=== PATIENT | female | born 1990 | race Caucasian/White ===

== ENCOUNTER 2016-06-06 14:49 | Emergency (ER) | payer OTHER ==
[~2016-06-06] VITALS: Ht 167.6 cm; Wt 60.8 kg
[2016-06-06] MEDS ORDERED: SERO50TA PO (15:19)
[2016-06-06] MEDS ORDERED: VIST25CA PO (15:21)
[2016-06-06] MEDS ORDERED: YAZ3TAB PO (15:35)
[2016-06-06 17:03] VITALS: BP 118/74
== END 2016-06-06 17:05 | disposition home or self-care (01) ==
LOC: M ED 15:43
DX: F43.9 Reaction to severe stress, unspecified (principal); F32.9 Major depressive disorder, single episode, unspecified

== ENCOUNTER 2016-10-29 16:23 | Emergency (ER) | payer OTHER ==
[~2016-10-29] VITALS: Ht 167.6 cm; Wt 63.6 kg
[~2016-10-29 16:23] MED LIST: ATIV1TAB7; NAPR500T PO; SERO50TA PO; VIST25CA PO; YAZ1TAB PO
--- NOTE | 2016-10-29 18:21 | REP ---
Clinical: Right lower quadrant pelvic pain. Technique: Transabdominal pelvic ultrasound with color Doppler evaluation of the ovaries. Findings: Heterogeneous anteverted uterus measures 9.6 x 5.0 x 5.7 cm with a left anterior intramural fibroid measuring 1.1 cm diameter. The endometrial complex measures 11.9 mm thickness. No discrete endometrial abnormalities appreciated. Prominent pelvic vasculature is noted which is nonspecific. The bilateral ovaries are normal in appearance and vascularity without evidence for torsion. Right ovary measures 4.2 x 2.7 x 2.2 cm and includes 2.7 x 3.0 x 1.9 cm dominant follicle; RI = 0.59. Left ovary measures 2.9 x 2.3 x 1.0 cm; RI = 0.53. Trace free fluid in the right tommy pelvis noted. Impression: 1. Heterogeneous anteverted uterus with 1.1 cm intramural fibroid. 2. 3 cm right ovarian dominant follicle and trace right pelvic free fluid likely physiologic and related to menstrual cycle. Findings may be related to patient's symptoms and correlation is recommended. Consider reevaluation in 4-6 weeks to evaluate for resolution. Signed by Jon Oreilly MD 10/29/2016 06:12 P
[2016-10-29] MEDS ORDERED: PYRI1TAB5 PO (18:30)
[2016-10-29] MEDS ORDERED: MACR100C43 PO (18:30)
[2016-10-29] MEDS ORDERED: DIFL150T PO (18:45)
[2016-10-29 18:46] VITALS: BP 124/77
== END 2016-10-29 18:47 | disposition home or self-care (01) ==
LOC: M ED 16:23
DX: N39.0 Urinary tract infection, site not specified (principal); N83.201 Unspecified ovarian cyst, right side

== ENCOUNTER 2017-01-27 14:51 | Emergency (ER) | payer OTHER ==
[~2017-01-27] VITALS: Ht 167.6 cm; Wt 62.3 kg
[~2017-01-27 14:51] MED LIST changes: +DIFL150T PO; +MACR100C43 PO; +PYRI1TAB5 PO
[2017-01-27] MEDS ORDERED: NS 1,000 ML IV ONE (16:30)
--- NOTE | 2017-01-27 17:06 | REP ---
First trimester obstetric sonography: History: Vaginal bleeding. Findings: Scanning through the gravid uterus demonstrates a viable single intrauterine gestation in a free-floating lie. The embryonic pole measures 21 mm in crown-rump length. This corresponds with a gestational age estimate of 8 weeks 5 days. heart rate is recorded at 180 beats per minute. A small subchorionic hemorrhage is seen measuring 1.8 x 1.1 x 1.6 cm. This is located at the fundal aspect of the gestational sac. There is a 1.6 cm cystic area in the maternal right ovary consistent with corpus luteum. Impression: Viable single intrauterine gestation at 8 weeks 5 days by crown-rump length. SHASHI by sonography September 03, 2017 . There is a 1.8 cm subchorionic hemorrhage superior to the gestational sac. Signed by Sumanth Alves MD 01/28/2017 09:37 A
[2017-01-27] MEDS ORDERED: METOCLOPRAMIDE INJ 10MG/2ML VIAL (J2765) IV ONE (17:30)
[2017-01-27 17:37] LABS: BASO % 0.3 % (0.0-1.0); EOS # 0.1 10^3/uL (0.0-0.50); EOS % 0.9 % (0.0-3.0); IMMATURE GRANULOCYTE % 0.3 % (0-0); LYMPH # 3.2 10^3/uL (1.5-6.5); LYMPH % 31.8 % (24.0-44.0); MEAN CORPUSCULAR HEMOGLOBIN 30.2 pg (27.0-33.0); MEAN CORPUSCULAR HGB CONC 35.1 g/dl (32.0-36.5); MEAN CORPUSCULAR VOLUME 86.1 fl (80.0-96.0); MONO # 0.9 10^3/uL (0.0-0.8); NEUTROPHILS # 5.8 10^3/uL (1.8-7.7); NEUTROPHILS % 57.7 % (36.0-66.0); PLATELET COUNT, AUTOMATED 261 10^3/uL (150-450); RED CELL DISTRIBUTION WIDTH 12.2 % (11.5-14.5); WHITE BLOOD COUNT 10.1 10^3/uL (4.0-10.0)
[2017-01-27 18:15] LABS: ANION GAP 8 MEQ/L (8-16); BLOOD UREA NITROGEN 9 MG/DL (7-18); CALCIUM LEVEL 8.5 MG/DL (8.5-10.1); CARBON DIOXIDE LEVEL 24 MEQ/L (21-32); CHLORIDE LEVEL 110 MEQ/L (98-107); CREATININE FOR GFR 0.43 MG/DL (0.55-1.02); GLOMERULAR FILTRATION RATE > 60.0 (>60); GLUCOSE, FASTING 63 MG/DL (70-105); HCG, SERUM QUANTITATIVE 107161 MIU/ML; POTASSIUM SERUM 3.7 MEQ/L (3.5-5.1); SODIUM LEVEL 142 MEQ/L (136-145)
[2017-01-27] MEDS ORDERED: REGL10TA6 PO (18:30)
[2017-01-27 18:35] VITALS: BP 114/67
== END 2017-01-27 18:57 | disposition home or self-care (01) ==
LOC: M ED 14:51
DX: O20.8 Other hemorrhage in early pregnancy (principal); O99.341 Other mental disorders complicating pregnancy, first trimester; F33.9 Major depressive disorder, recurrent, unspecified; Z3A.09 9 weeks gestation of pregnancy
CPT/HCPCS: 76801; 80048; 81001; 84702; 85025; 86900; 86901; 99284; J2765

== ENCOUNTER → 2018-09-21 | Outpatient (REF) | payer OTHER ==
[~2018-09-21] MED LIST changes: +NAPR-837 PO; -NAPR500T PO; +REGL10TA6 PO; +TAMO10TA PO; +ZOFR4TAB16 PO
[2018-09-21 13:22] LABS: HEMATOCRIT 34.7 % (36.0-47.0); HEMOGLOBIN 10.9 g/dl (12.0-15.5); MEAN CORPUSCULAR HGB CONC 31.4 g/dl (32.0-36.5); MEAN CORPUSCULAR VOLUME 89.2 fl (80.0-96.0); PLATELET COUNT, AUTOMATED 243 10^3/uL (150-450); RED BLOOD COUNT 3.89 10^6/uL (4.00-5.40); WHITE BLOOD COUNT 5.9 10^3/uL (4.0-10.0)
== END ==
LOC: M LABDRAW1 09:31
PROVIDERS: ATTEND Obstetrics & Gynecology
DX: D64.9 Anemia, unspecified (principal)

== ENCOUNTER 2018-09-29 06:09 | Day surgery (SDC) | payer OTHER ==
[2018-09-29] VITALS (8 sets, daily range): BP systolic 101–117; BP diastolic 54–67
[~2018-09-29] VITALS: Ht 162.6 cm; Wt 61.7 kg
[2018-09-29] MEDS ORDERED: LR 1,000 ML IV SCH ×3 (06:15→12:00)
[2018-09-29 06:39] LABS: HEMATOCRIT 37.3 % (36.0-47.0); HEMOGLOBIN 11.8 g/dl (12.0-15.5); MEAN CORPUSCULAR HEMOGLOBIN 27.8 pg (27.0-33.0); MEAN CORPUSCULAR HGB CONC 31.6 g/dl (32.0-36.5); MEAN CORPUSCULAR VOLUME 87.8 fl (80.0-96.0); PLATELET COUNT, AUTOMATED 236 10^3/uL (150-450); RED BLOOD COUNT 4.25 10^6/uL (4.00-5.40); WHITE BLOOD COUNT 6.9 10^3/uL (4.0-10.0)
[2018-09-29 06:51] LABS: HCG, SERUM QUALITATIVE NEGATIVE (NEGATIVE)
[2018-09-29] MEDS ORDERED: dexameTHASONE 4 MG/ML 1ML VIAL (J1100) As Ordered ONE (07:10)
[2018-09-29] MEDS ORDERED: ONDANSETRON 4MG/2ML VIAL (J2405) As Ordered ONE (07:10)
[2018-09-29] MEDS ORDERED: ROCURONIUM BROMIDE 50 MG/5 ML VIAL As Ordered ONE ×2 (07:10→08:09)
[2018-09-29] MEDS ORDERED: fentaNYL 100 MCG/2 ML INJECTION (J3010) As Ordered ONE ×3 (07:10→09:57)
[2018-09-29] MEDS ORDERED: LIDOCAINE 2% INJ 100 MG/5 ML SDV (FOR ANES.) As Ordered ONE (07:10)
[2018-09-29] MEDS ORDERED: MIDAZOLAM INJ 2 MG/2 ML VIAL (J2250) As Ordered ONE (07:10)
[2018-09-29] MEDS ORDERED: PROPOFOL 200 MG/20 ML VIAL As Ordered ONE (07:10)
[2018-09-29] MEDS ORDERED: BUPIVACAINE HCL 0.25% 30 ML VIAL As Ordered ONE (07:15)
[2018-09-29] MEDS ORDERED: METHYLENE BLUE 0.5% (5MG/ML) 10 ML AMP (PROVAYBLUE)(Q9968 PER 1MG) As Ordered ONE (07:16)
[2018-09-29] MEDS ORDERED: SCOPOLAMINE 1MG TRANSDERMAL PATCH As Ordered ONE (07:30)
[2018-09-29] MEDS ORDERED: SCOPOLAMINE 1MG TRANSDERMAL PATCH TOP ONE (08:00)
[2018-09-29] MEDS ORDERED: ACETAMINOPHEN 1000MG 100ML IV BTL (OFIRMEV) (J0131 PER 10MG) As Ordered ONE (08:15)
[2018-09-29] MEDS ORDERED: KETOROLAC 60 MG/2 ML VIAL (J1885) As Ordered ONE (08:49)
[2018-09-29] MEDS ORDERED: SUGAMMADEX SODIUM 500 MG/5 ML VIAL (BRIDION) As Ordered ONE (08:49)
[2018-09-29] MEDS: fentaNYL 100 MCG/2 ML INJECTION (J3010) IV PRN ×4 (10:01→10:27)
[2018-09-29] MEDS ORDERED: ONDANSETRON 4MG/2ML VIAL (J2405) IV PRN ×2 (10:15→12:00)
[2018-09-29] MEDS ORDERED: MEPERIDINE INJ 25 MG/ML VIAL (J2175) IV PRN (10:15)
[2018-09-29] MEDS ORDERED: METOCLOPRAMIDE INJ 10MG/2ML VIAL (J2765) IV PRN (10:15)
[2018-09-29] MEDS: oxyCODONE 5MG TAB PO PRN ×2 (10:23→10:53)
[2018-09-29] MEDS ORDERED: PERCOCET 5MG/325MG TAB PO PRN (12:00)
[2018-09-29] MEDS ORDERED: ONDANSETRON 4 MG TAB (S0181) PO PRN (12:00)
[2018-09-29] MEDS ORDERED: PROMETHAZINE INJ 25 MG/ML VIAL (J2550) IV PRN (12:00)
[2018-09-29] MEDS: DOCUSATE SODIUM 100 MG CAP PO SCH ×2 (12:51→20:42)
[2018-09-29] MEDS: TAMOXIFEN CITRATE 10 MG TAB PO SCH ×2 (14:07→20:42)
[2018-09-29] MEDS: KETOROLAC 30 MG/ML VIAL (J1885) IV SCH ×2 (15:19→20:42)
[2018-09-29] MEDS: PERCOCET 5MG/325MG TAB PO PRN (20:50)
[2018-09-30 00:13] VITALS: BP 111/59
[2018-09-30] MEDS: PERCOCET 5MG/325MG TAB PO PRN ×3 (00:59→14:35)
[2018-09-30] MEDS: KETOROLAC 30 MG/ML VIAL (J1885) IV SCH (03:50)
[2018-09-30 04:00] VITALS: BP 113/75
[2018-09-30 07:51] LABS: BASO % 0.2 % (0.0-1.0); EOS % 0.1 % (0.0-3.0); HEMATOCRIT 30.4 % (36.0-47.0); LYMPH # 2.9 10^3/uL (1.5-6.5); LYMPH % 31.2 % (24.0-44.0); MEAN CORPUSCULAR HEMOGLOBIN 27.8 pg (27.0-33.0); MEAN CORPUSCULAR HGB CONC 31.6 g/dl (32.0-36.5); MEAN CORPUSCULAR VOLUME 88.1 fl (80.0-96.0); MONO # 0.9 10^3/uL (0.0-0.8); MONO % 9.7 % (0.0-5.0); NEUTROPHILS # 5.4 10^3/uL (1.8-7.7); NEUTROPHILS % 58.5 % (36.0-66.0); PLATELET COUNT, AUTOMATED 182 10^3/uL (150-450); RED BLOOD COUNT 3.45 10^6/uL (4.00-5.40); WHITE BLOOD COUNT 9.2 10^3/uL (4.0-10.0)
[2018-09-30 07:54] LABS: HEMOGLOBIN 9.6 g/dl (12.0-15.5)
[2018-09-30 08:00] VITALS: BP 109/67
[2018-09-30] MEDS: TAMOXIFEN CITRATE 10 MG TAB PO SCH (08:46)
[2018-09-30] MEDS: DOCUSATE SODIUM 100 MG CAP PO SCH (08:46)
[2018-09-30] MEDS ORDERED: IBUPROFEN 800 MG TAB PO SCH (11:00)
[2018-09-30 12:00] VITALS: BP 103/64
[2018-09-30 16:00] VITALS: BP 125/59
[2018-10-02] MEDS ORDERED: OXYC1TAB23 PO (14:36)
[2018-10-02] MEDS ORDERED: IBUP80TA PO (14:37)
== END 2018-09-30 17:40 | disposition home or self-care (01) ==
LOC: M SDC 06:09 → M PED 11:20 → M SDC 09-30 17:40
PROVIDERS: ATTEND Obstetrics & Gynecology
DX: N93.9 Abnormal uterine and vaginal bleeding, unspecified (principal); N83.01 Follicular cyst of right ovary; D64.9 Anemia, unspecified; Z91.040 Latex allergy status; F41.9 Anxiety disorder, unspecified; Z15.01 Genetic susceptibility to malignant neoplasm of breast; Z79.899 Other long term (current) drug therapy
CPT/HCPCS: 36415; 58571; 84703; 85025; 85027; 86850; 86900; 86901; 88307; 96374; 96376; J0131; J0690; J1100; J1885; J2250; J2405; J3010; Q9968

== ENCOUNTER → 2019-04-16 | Outpatient (REF) | payer OTHER ==
[~2019-04-16] MED LIST changes: +IBUP80TA PO; +OXYC1TAB23 PO
== END ==
LOC: M SFHCLERA 19:10
PROVIDERS: ATTEND Nurse Practitioner Family
DX: R50.9 Fever, unspecified (principal)

== ENCOUNTER → 2019-10-22 | Outpatient (CLI) | payer OTHER ==
[2019-10-22 20:46] LABS: FREE T4 0.92 NG/DL (0.76-1.46); PROLACTIN 10.1 NG/ML; THYROID STIMULATING HORMONE 0.962 uIU/ML (0.358-3.740)
== END ==
LOC: M PLALAB 15:33
PROVIDERS: ATTEND Surgery
DX: N64.52 Nipple discharge (principal)

== ENCOUNTER → 2019-10-26 | Outpatient (CLI) | payer OTHER ==
--- NOTE | 2019-11-13 16:10 | REP ---
FOCUSED LEFT BREAST SONOGRAPHY HISTORY: Left lateral breast pain. Left outer quadrants. FINDINGS: Focused left breast sonography is performed through the lateral aspect of the breast. Heterogeneous fibroglandular background echotexture is seen. There are multiple benign appearing lymph nodes visible in the left axilla. The largest three measure as follows: 1.8 x 1.8 x 0.7; 1.7 x 0.9 x 0.6; and 1.3 x 1.2 x 1.1 cm respectively. These do not appear pathologic by sonographic criteria. No mass is seen in the outer aspect of the left breast. No cyst is observed. There are some slightly prominent ducts in the retroareolar region. IMPRESSION: BI-RADS Category 2 benign sonographic findings. Clinical follow-up is advised. ANNA
== END | disposition home or self-care (01) ==
LOC: M WHC 10:17
PROVIDERS: ATTEND Surgery
DX: N64.4 Mastodynia (principal)

== ENCOUNTER → 2019-10-26 | Outpatient (CLI) | payer OTHER ==
[2019-10-26 14:48] LABS: HEMATOCRIT 38.2 % (36.0-47.0); HEMOGLOBIN 12.6 g/dl (12.0-15.5); MEAN CORPUSCULAR HEMOGLOBIN 30.3 pg (27.0-33.0); MEAN CORPUSCULAR VOLUME 91.8 fl (80.0-96.0); PLATELET COUNT, AUTOMATED 235 10^3/uL (150-450); RED BLOOD COUNT 4.16 10^6/uL (4.00-5.40); WHITE BLOOD COUNT 7.4 10^3/uL (4.0-10.0)
[2019-10-26 15:21] LABS: ALBUMIN 4.2 GM/DL (3.2-5.2); ALT/SGPT 17 U/L (12-78); BILIRUBIN,TOTAL 0.8 MG/DL (0.2-1.0); BLOOD UREA NITROGEN 10 MG/DL (7-18); CALCIUM LEVEL 8.7 MG/DL (8.5-10.1); CARBON DIOXIDE LEVEL 26 MEQ/L (21-32); CHLORIDE LEVEL 112 MEQ/L (98-107); CHOLESTEROL LEVEL 106 MG/DL (<200); CHOLESTEROL RISK RATIO 2.255 (<5); CREATININE FOR GFR 0.67 MG/DL (0.55-1.30); FREE T4 0.95 NG/DL (0.76-1.46); GLOMERULAR FILTRATION RATE > 60.0 (>60); GLUCOSE, FASTING 80 MG/DL (70-100); HDL CHOLESTEROL 47 MG/DL (>40); LDL CHOLESTEROL 53 MG/DL (<100); NON-HDL-C 59 MG/DL; SODIUM LEVEL 143 MEQ/L (136-145); TOTAL PROTEIN 6.9 GM/DL (6.4-8.2); TRIGLYCERIDES LEVEL 32 MG/DL (<150)
[2019-10-26 15:23] LABS: PTH INTACT 37.7 PG/ML (18.5-88.0); VITAMIN B12 LEVEL 509 PG/ML (247-911)
[2019-10-26 17:51] LABS: HEMOGLOBIN A1c 5.2 %
--- NOTE | 2019-11-13 16:01 | REPPI ---
THORACIC SPINE SERIES: HISTORY: Back pain. TECHNIQUE: AP and lateral views of the thoracic spine. FINDINGS: Normal alignment and kyphosis is appreciated. Vertebral bodies are intact. No acute fracture/compression injury or subluxation. Paravertebral soft tissues spaces are normal. IMPRESSION: Normal age appropriate thoracic spine radiograph series. MTDD
--- NOTE | 2019-11-13 16:03 | REPPI ---
LEFT SHOULDER SERIES: HISTORY: Muscular pain. TECHNIQUE: Internal rotation, external rotation and Y-view of the left shoulder. FINDINGS: Acromioclavicular and glenohumeral joints are intact and normal. No evidence for acute or healed injury. No periarticular calcifications or loose bodies identified. The subacromial space is normal. Soft tissues are normal. IMPRESSION: Normal left shoulder radiographs. MTDD
--- NOTE | 2019-11-13 16:06 | REPPI ---
CHEST X-RAY: HISTORY: Muscular chest pain. TECHNIQUE: PA and lateral FINDINGS: Mediastinum and cardiac silhouette are normal. Lung [place] are clear. No acute consolidation, effusion or pneumothorax. Skeletal structures are intact. IMPRESSION: Normal chest x-ray. MTDD
--- NOTE | 2019-11-13 16:08 | REPPI ---
CERVICAL SPINE SERIES: HISTORY: Muscular neck pain. TECHNIQUE: AP, lateral, flexion/extension, bilateral oblique and open mouth views of the cervical spine. FINDINGS: Alignment and lordosis is maintained. Vertebral bodies are intact. Oblique views demonstrate patent neural foramen. Open mouth view demonstrates normal C1-C2 articulation and odointoid process. Surrounding soft tissues are unremarkable. IMPRESSION: Normal cervical spine radiograph series. MTDD
== END ==
LOC: M PLAIMG 11:04
PROVIDERS: ATTEND Family Medicine
DX: N64.4 Mastodynia (principal); G90.09 Other idiopathic peripheral autonomic neuropathy